=== PATIENT | male | born 1960 | race Caucasian/White ===

== ENCOUNTER 2018-07-04 09:34 | Emergency (ER) | payer BC ==
[~2018-07-04] VITALS: Ht 177.8 cm; Wt 95.0 kg
--- NOTE | 2018-07-04 09:55 | NUR ---
PATIENT TO ROOM WITH STEADY GAIT.
[2018-07-04 10:49] LABS: HEMATOCRIT 51.4 % (39.0-50.0); MEAN CELL VOLUME 92.3 fL CALC (80.0-100.0); MEAN CORPUSCULAR HGB 30.5 pG CALC (26.0-32.0); MEAN CORPUSCULAR HGB CONC 33.1 g/L CALC (32.0-36.0); NEUT# 8.55 thou/uL (1.82-7.42); RED BLOOD COUNT 5.57 mill/uL (4.70-6.10); RED CELL DISTRI WIDTH 13.2 % (11.5-15.5)
--- NOTE | 2018-07-04 11:03 | NUR ---
PT STATES PAIN HAS EASED UP BUT NOT GONE, PT REMAIN ALERT/ORIENTED X3, VITAL SIGNS STABLE. CALL LIGHT WITHIN ERACH
[2018-07-04 11:10] LABS: ALBUMIN 3.8 g/dL (3.2-5.0); ALKALINE PHOSPHATASE 98 u/l (38-126); ANION GAP 11 (6-22 (CALC)); BUN 16 mg/dL (9-20); BUN/CREATININE RATIO 14 (12-20 (CALC)); CARBON DIOXIDE 30 mmol/l (22-30); CHLORIDE 102 mmol/l (95-108); CREATININE 1.2 mg/dL (0.7-1.3); GFR > 60 ML/MIN (>=60 (CALC)); GFR FOR AFR.AMER. > 60 ML/MIN (>=60 (CALC)); LIPASE 86 u/l (23-300); POTASSIUM 4.9 mmol/l (3.5-5.1); SGOT/AST 30 u/l (17-59); SODIUM 139 mmol/l (137-146)
[2018-07-04 11:19] LABS: URINE BILIRUBIN - DIPSTICK NEGATIVE (NEGATIVE); URINE BLOOD DIPSTICK TRACE-INTACT (NEGATIVE); URINE COLOR YELLOW; URINE GLUCOSE - DIPSTICK NEGATIVE (NEGATIVE); URINE KETONE NEGATIVE (NEGATIVE); URINE LEUK ESTERASE NEGATIVE (NEGATIVE); URINE NITRITE - DIPSTICK NEGATIVE (Negative); URINE PROTEIN - DIPSTICK NEGATIVE (NEG-TRACE); URINE SPECIFIC GRAVITY >=1.030; URINE UROBILINOGEN - DIPSTICK 0.2 E.U./dL (0.2)
[2018-07-04] MEDS ORDERED: LISINOPRIL20 MG PO (11:35)
[2018-07-04] MEDS ORDERED: LIPITOR20 M1 PO (11:36)
--- NOTE | 2018-07-04 12:17 | NUR ---
ADVISED PT OF POSSIBLE ADMISSION, VOICES UNDERSTANDING. AT BEDSIDE.
--- NOTE | 2018-07-04 13:40 | NUR ---
PT TRANSPORTED TO [facility] [place] VIA ACCOMPIANED BY CATA BELLO @[id number]. PT AMBULATED FROM TO BED W/ STEADY GAIT. VS DONE. PT A/O X3. SPEECH IS CLEAR. RESP EVEN AND UNLABORED. LUNG SOUNDS CLEAR. BOWEL SOUNDS ACTIVE X4. STRONG RADIAL AND PEDAL PULSES. #20 LFA SL. FLUSHED AND PATENT. SITE APPEARS HEALTHY. SKIN INTACT. PT C/O ACHING PAIN TO ABDOMEN. MEDICATION ADMINISTRATION DISCUSSED W/ PT. PT STATES UNDERSTANDING. NO FURTHER NEEDS AT THIS TIME. POC DISCUSSED. SAFETY PRECAUTIONS IN PLACE. CALL LIGHT IN REACH. WILL CONTINUE TO MONITOR.
[2018-07-04 13:56] VITALS: BP 130/81
--- NOTE | 2018-07-04 15:29 | NUR ---
PT C/O ACHING PAIN TO HIS ABDOMEN. 8 OUT OF 10 ON PAIN SCALE. MEDICATED W/ 10 MG DEMEROL IV. REPOSITIONED FOR COMFORT. PT DENIES ANY FURTHER NEEDS. CALL LIGHT IN REACH. WILL CONTINUE TO MONITOR.
--- NOTE | 2018-07-04 15:45 | NUR ---
DR. FERNANDO CALLED REGARDING PT DIET. CLEAR LIQUIDS ALLOWED, NPO AT MIDNIGHT PER .
[2018-07-04 16:00] VITALS: BP 128/81
--- NOTE | 2018-07-04 19:00 | NUR ---
REPORT RECEIVED FROM CASANDRA MOCTEZUMA. PT RESTING IN BED. NO SIGNS OR SYMPTOMS OF DISTRESS. PT DENIES ANY NEEDS AT THIS TIME. WILL CONTINUE TO MONITOR.
[2018-07-04 19:24] VITALS: BP 110/68
--- NOTE | 2018-07-04 20:40 | NUR ---
PT RESTING IN BED, ALERT AND ORIENTED. RESPIRATIONS EVEN AND UNLABORED ON RA. PT REPORTS HAVING PAIN OF A 7 OUT OF 10, PT EDUCATED ON PAIN MEDICATION SCHEDULE. IV # 20 LAC, INFUSING LR @ 100 ML/HR, SITE APPEARS HEALTHY. SAFETY PRECAUTIONS IN PLACE. CALL LIGHT WITHIN REACH. WILL CONTINUE TO MONITOR.
[2018-07-05] VITALS (9 sets, daily range): BP systolic 91–166; BP diastolic 49–93
--- NOTE | 2018-07-05 01:10 | NUR ---
PT RESTING IN BED. PT COMPLAINS OF PAIN STATING "MY PAIN IS OFF THE CHART". PROVIDED PT WITH COOL PACK AND EXTRA PILLOW TO PROVIDE COMFORT. EDUCATED PT ON PAIN MEDICATION SCHEDULE. SAFETY PRECAUTIONS IN PLACE. WILL CONTINUE TO MONITOR.
--- NOTE | 2018-07-05 04:00 | NUR ---
PT RESTING IN BED WATCHING TV. PT COMPLAINING OF PAIN OF AN 8 OUT OF 10. PROVIDED PT WITH COOL PACKS TO PROVIDE COMFORT. SAFETY PRECAUTIONS IN PLACE WILL CONTINUE TO MONITOR.
--- NOTE | 2018-07-05 07:32 | NUR ---
REPORT RECEIVED FROM SEVEN RN; PT SITTING UP IN BED WATCHING TV; RESP EVEN AND UNLABORED; CALL MAIER IN REACH;
--- NOTE | 2018-07-05 08:47 | NUR ---
ASSESSMENT COMPLETED; SITTING UP IN BED WATCHING TV; C/O OF RLQ PAIN, 02/03, MEDICATED WITH DILAUDID; REQ NICOTINE PATCH BE HELD, SAY "MAYBE IT'S MAKING ME FEEL SICK, I'M NOT USE TO IT" LR @100 CC/HR; IV SITE APPEARS HEALTHY; VOIDED 100CC CLEAR, YELLOW URINE; SAYS WHEN GETS HERE HE WILL TAKE A SHOWER; TOLD HIM TO LET US KNOW; CALL MAIER IN REACH; SAFETY PREACAUTION REINFORCE; WILL CONTINUE TO MONITOR.
--- NOTE | 2018-07-05 11:11 | NUR ---
ZEENAT FROM OR IS AT BEDSIDE
--- NOTE | 2018-07-05 12:13 | NUR ---
SITTING UP IN BED VISITING WITH HIS ; RESP EVEN AND UNLABORED; C/O OF PAIN 02/03; MEDICATED PER EMAR; ZOSYN INFUSING WITHOUT DIFFICULTY; SITE APPEARS HEALTHY; CALL MAIER IN REACH;
--- NOTE | 2018-07-05 15:02 | NUR ---
PT OFF FLOOR TO OR VIA STRETCHER ACCOMPANIED BY OR STAFF IN STABLE CONDITION.
--- NOTE | 2018-07-05 18:13 | NUR ---
PT ARRIVED FROM OR IN STABLE CONDITION; TRANSFER SELF INTO BED; RESP EVEN AND UNLABORED; 02@2L NC; FIVE SM INCISIONS NOTED TO ABD, RAHEEL NOTED TO RLQ, BLOODY DRAINAGE NOTED TO BULB; VITALS OBTAINED; NO S/S OF DISTRESS NOTED; ASKING FOR ICE CHIPS (DONE) CALL MAIER IN REACH. AT BEDSIDE.
--- NOTE | 2018-07-05 19:30 | NUR ---
PT. SITTING UP IN BED WITH NO RESP DISTRESS NOTED; EDUCATED ON I/S AND PULLING 1250; GOAL SET TO 1500; WILL CONTINUE TO ENCOURAGE; DRESSINGS X5 TO ABDOMEN ALL ARE CDI; RAHEEL NOTED TO RLQ WITH SEROUS SANGINOUS DRAINAGE; MANUAL B/P 94/52; WILL CONTINUE TO MONITOR; ASSESSMENT COMPLETED; PT. TOLERATING LIQUIDS WELL; DENIES NAUSEA AND NO VOMITING NOTED; CALL LIGHT IS IN REACH; WILL CONTINUE TO MONITOR.
--- NOTE | 2018-07-05 22:17 | NUR ---
PT. MEDICATED WITH ORDERED DILAUDID FOR ABD PAIN OF 11/03; WILL REASSESS; DENIES FURTHER NEEDS; CALL LIGHT IS IN REACH.
--- NOTE | 2018-07-06 00:37 | NUR ---
PT. SITTING UP IN BED WITH NO DISTRESS NOTED; URINAL EMPTIED; C/O SLIGHT TENDERNESS TO RLQ; NOT TIME FOR PRN MEDICATION; EDCUATED ON FREQUENCIES; VERBALIZES UNDERSTANDING; DENIES FURTHER NEEDS; RAHEEL DRAIN EMPTIED OF 25 MLS OF BLOODY DRAINAGE AND URINAL EMPTIED; CALL LIGHT IS IN REACH.
[2018-07-06 01:24] VITALS: BP 99/51
--- NOTE | 2018-07-06 01:28 | NUR ---
PT. MEDICATED FOR ABD PAIN WITH ORDERED PRN DILAUDID; WILL REASSESS; DENIES FURTHER NEEDS; CALL LIGHT IS IN REACH.
--- NOTE | 2018-07-06 03:05 | NUR ---
PT. SITTING UP IN BED WITH NO DISTRESS NOTED; DENIES PAIN AT THIS TIME; SNACKS PROVIDED; PT. TOLERATING DIET WELL; ENCOURAGED TO CALL FOR ANY NEEDS; CALL LIGHT IS IN REACH.
[2018-07-06 03:45] VITALS: BP 130/78
--- NOTE | 2018-07-06 04:38 | NUR ---
PT. C/O ABD PAIN 11/03; MEDICATED WITH ORDERED DILAUDID; WILL REASSESS; DENIES FURTHER NEEDS; CALL LIGHT IS IN REACH.
--- NOTE | 2018-07-06 07:10 | NUR ---
PT REPORT RECIEVED FROM CATA MENDEZ. PT RESTING. NO S/S OF DISTRESS. CALL LIGHT IN REACH. WILL CONTINUE TO MONITOR,
[2018-07-06 07:46] VITALS: BP 112/74
--- NOTE | 2018-07-06 07:46 | NUR ---
PT A/O X3. SPEECH IS CLEAR. RESP EVEN AND UNLABORED. LUNG SOUNDS CLEAR. BOWEL SOUNDS HYPOACTIVE; ABDOMEN DISTENDED AND FIRM. RAHEEL DRAIN TO RT SIDE OF ABDOMEN; DRESSING SATURATED W/ SEROSANGUINOUS DRAINAGE. CLEANED AREA W/ SALINE. NEW GUAZE AND TEGADERM APPLIED. RAHEEL DRAIN EMPTIED; 40 MLS OF BLOODY DRAINAGE NOTED. PT HAS A TOTAL OF 5 DRESSING TO ABDOMEN, OTHER THAN RAHEEL DRAIN DRESSING BEING SATURATED ALL OTHER DRESSING CDI. PT C/O ACHING ABDOMINAL PAIN, 7 OUT OF 10 PAIN ON PAIN SCALE. MEDICATED W/ 1 MG DILAUDID IV. REPOSITIONED FOR COMFORT. #20 RH LR @100. SITE APPEARS HEALTHY. PT DENIES ANY FURTHER NEEDS. POC DISCUSSED. SAFETY PRECAUTIONS IN PLACE. INCENTIVE SPIROMETER AT BEDSIDE. CALL LIGHT IN REACH. WILL CONTINUE TO MONITOR.
[2018-07-06 12:00] VITALS: BP 124/73
--- NOTE | 2018-07-06 12:16 | NUR ---
PT SITTING IN BED WATCHING TELEVISION. NO C/O PAIN OR NEEDS. CALL LIGHT IN REACH. WILL CONTINUE TO MONITOR.
--- NOTE | 2018-07-06 12:24 | NUR ---
PT LYING IN BED TALKING W/ SPOUSE. NO C/O PAIN. PT REQUESTING FOR SPOUSE TO TAKE HIM DOWNSTAIRS TO SMOKE. I INFORMED PT THIS IS A SMOKE FREE FACILITY. PT STATES UNDERSTANDING. CALL LIGHT IN REACH. WILL CONTINUE TO MONITOR.
--- NOTE | 2018-07-06 15:56 | NUR ---
PT HAS GONE DOWNSTAIRS WITHOUT LETTING A NURSE KNOW. DIANE HINSON STATES PT TOLD HER "I'M GOING DOWNSTAIRS I'LL BE BACK"
[2018-07-06 20:08] VITALS: BP 141/87
--- NOTE | 2018-07-06 20:28 | NUR ---
PT. IN ROOM SITTING UP IN BED WITH NO DISTRESS NOTED; TALKING ON THE PHONE; REPORTING A PAIN OF 7/10 TO RLQ; MEDICATED WITH ORDERED DILAUDID; WILL REASSESS; PO FLUIDS OFFERED; RAHEEL INTACT TO RLQ; DRESSINGS X5 CDI TO ABDOMEN; INCENTIVE SPIROMETER AT BEDSIDE AND ENCOURAGED TO USE; CALL LIGHT IS IN REACH; WILL CONTINUE TO MONITOR.
--- NOTE | 2018-07-06 23:31 | NUR ---
PT. C/O RLQ PAIN 11/03; MEDICATED WITH ORDERED PRN DILAUDID; WILL REASSESS;RAHEEL EMPTIED OF 25MLS OF SEROUS SANGINOUS DRAINAGE; DENIES FURTHER NEEDS; CALL LIGHT IS IN REACH; WILL CONTINUE TO MONITOR.
[2018-07-07 00:11] VITALS: BP 141/89
--- NOTE | 2018-07-07 03:25 | NUR ---
PT. C/O RLQ PAIN 01/04; MEDICATED WITH ORDERED DILAUDID; WILL REASSESS;
[2018-07-07 04:11] VITALS: BP 111/64
[2018-07-07 04:43] LABS: HEMATOCRIT 46.2 % (39.0-50.0); HEMOGLOBIN 15.1 g/dl (14.0-18.0); MEAN CELL VOLUME 90.6 fL CALC (80.0-100.0); MEAN CORPUSCULAR HGB 29.6 pG CALC (26.0-32.0); MEAN CORPUSCULAR HGB CONC 32.7 g/L CALC (32.0-36.0); NEUT# 7.03 thou/uL (1.82-7.42); RED BLOOD COUNT 5.1 mill/uL (4.70-6.10); RED CELL DISTRI WIDTH 13.2 % (11.5-15.5)
[2018-07-07 04:57] LABS: ALBUMIN 3.7 g/dL (3.2-5.0); ALKALINE PHOSPHATASE 88 u/l (38-126); AMYLASE 48 u/l (30-110); ANION GAP 15 (6-22 (CALC)); BILIRUBIN, TOTAL 2.1 mg/dL (0.0-1.4); BUN 14 mg/dL (9-20); BUN/CREATININE RATIO 13 (12-20 (CALC)); CARBON DIOXIDE 26 mmol/l (22-30); CHLORIDE 101 mmol/l (95-108); CREATININE 1.1 mg/dL (0.7-1.3); GFR > 60 ML/MIN (>=60 (CALC)); GFR FOR AFR.AMER. > 60 ML/MIN (>=60 (CALC)); LIPASE 23 u/l (23-300); MAGNESIUM 1.9 mg/dL (1.6-2.3); POTASSIUM 4.1 mmol/l (3.5-5.1); SGOT/AST 44 u/l (17-59); SODIUM 137 mmol/l (137-146); TOTAL PROTEIN 6.7 g/dL (6.3-8.2)
[2018-07-07 09:27] VITALS: BP 134/89
--- NOTE | 2018-07-07 09:35 | NUR ---
SITTING UP IN BED WATCHING TV AND LOOKING AT HIS PHONE; RESP EVEN AND UNLABORED; ABD DRESSING X5, CDI; KRISTA DRAIN TO RLQ INTACT, 20ML OF BLOODY DRAINAGE EMPTIED; IS AT BEDSIDE; AM MEDS ADMINISTERED; C/O OF PAIN 12/04 MEDICATED WITH DILAUDID; IV FLUSHED WITHOUT DIFFICULTY; CALL MAIER IN REACH; SAFETY PRECAUTION REINFORCE;
--- NOTE | 2018-07-07 11:46 | NUR ---
PT LAYING IN BED WATCHING TV; RESP EVEN AND UNLABORED; ZOSYN INFUSING, SITE APPEARS HEALTHY; VOICE NO COMPLAINS; CALL MAIER AND URINAL IN REACH.
--- NOTE | 2018-07-07 13:15 | NUR ---
PT GOING DOWNSTAIRS WITH HIS ;
--- NOTE | 2018-07-07 13:46 | NUR ---
PT RETURN TO HIS ROOM ACCOMPANIED BY HIS ; NO S/S OF DISTRESS NOTED.
[2018-07-07] MEDS ORDERED: LORTAB5 PO (14:49)
[2018-07-07 16:02] VITALS: BP 134/76
--- NOTE | 2018-07-07 18:13 | NUR ---
PT SITTING UP IN BED EATING SUPPER AND WATCHING TV; DC INSTRUCTIONS AND NEW PRESCRIPTION GIVEN TO PT; DEMONSTRATE TO PT HOW TO CARE FOR RAHEEL DRAIN; VERBALIZE UNDERSTANDING; ABD DRESSING CDI; WILL LET US KNOW WHEN HIS RIDE GETS HERE; WANTS FINAL DOSE OF DILAUDID BEFORE HE LEAVES;
--- NOTE | 2018-07-07 18:54 | NUR ---
C/O OF ABD PAIN, DILAUDID GIVEN; SIGN D/C PAPERS; IV REMOVED, CATH INTACT; WAITING ON HIS RIDE, WILL PICK HIM UP.
== END 2018-07-07 19:30 | disposition home or self-care (01) | DRG 419 ==
LOC: ED 09:34 → ED-I 11:54 → ED 12:08 → MS2 12:09
PROVIDERS: Family Medicine; ADMIT Internal Medicine Nephrology; ATTEND Internal Medicine Nephrology
PROC: 0FT44ZZ Resection of Gallbladder, Percutaneous Endoscopic Approach (ICD-10-PCS; principal; 2018-07-05)
PROC: 0DNW4ZZ Release Peritoneum, Percutaneous Endoscopic Approach (ICD-10-PCS; 2018-07-05)
PROC: BF101ZZ Fluoroscopy of Bile Ducts using Low Osmolar Contrast (ICD-10-PCS; 2018-07-05)
DX: K80.12 Calculus of gallbladder with acute and chronic cholecystitis without obstruction (principal); K66.0 Peritoneal adhesions (postprocedural) (postinfection); I10 Essential (primary) hypertension; J44.9 Chronic obstructive pulmonary disease, unspecified; B19.20 Unspecified viral hepatitis C without hepatic coma; E78.5 Hyperlipidemia, unspecified; I73.9 Peripheral vascular disease, unspecified; I25.2 Old myocardial infarction; F17.210 Nicotine dependence, cigarettes, uncomplicated; Z95.828 Presence of other vascular implants and grafts
CPT/HCPCS: G0378; J0131; J2710; Q9967